=== PATIENT | male | born 2005 | race Caucasian/White ===

== ENCOUNTER 2023-02-06 02:42 | Emergency (ER) | payer OTHER, SELFPAY ==
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
[2023-02-06 02:45] VITALS: BP 145/91; PULSE 76; RESP 18; TEMP 37.2; O2SAT 100; BMI 39.0
--- NOTE | 2023-02-06 04:36 | ED_ITS ---
HPI - Extremity Injury (Lower) General Chief Complaint: Extremity Injury, Lower Stated Complaint: fall/ Left ankle pain Time Seen by Provider: 02/06/23 04:34 Source: patient Mode of arrival: ambulatory Limitations: no limitations History of Present Illness HPI Narrative: Patient complaining of left ankle pain after he twisted his left foot earlier today able to ambulate with slight pain slight swelling of the lateral malleolus no other deformity no other injuries Related Data Previous Rx's Medication Instructions Recorded ibuprofen 600 mg tablet 600 mg PO Q6H PRN fever or pain 02/06/23 #30 tabs Allergies Allergy/AdvReac Type Severity Reaction Status Date / Time No Known Allergies Allergy Unverified 08/18/20 17:18 Review of Systems Review of Systems: Yes all other systems are reviewed and are negative [facility] Social History Social History Advance Directives: No Advance Directives Information Provided: Yes Physical Exam Vital Signs: Vital Signs: Last Vital Signs Temp 98.9 F 02/06/23 02:45 Pulse 76 02/06/23 02:45 Resp 18 02/06/23 02:45 BP 145/91 H 02/06/23 02:45 Pulse Ox 100 02/06/23 02:45 O2 Del Method 02/06/23 02:45 BMI result Body Mass Index 39.0 Appearance: Alert. Oriented X3. No acute distress. ENT: Pharynx normal. Oral Mucosa moist Neck: Normal inspection. Neck supple. CVS: Normal heart rate and rhythm. Pulses normal. Respiratory: No respiratory distress. Equal air entry bilateral, Abdomen: Soft and nontender. Skin: Skin warm and dry. Normal skin color. Normal skin turgor. Extremities: No lower extremity edema. No calf tenderness left lateral malleolus tenderness with soft tissue swelling no deformity neurovascular intact Neuro: Oriented X 3. No motor deficit. Medications Administered Discontinued Medications Generic Name Dose Route Start Last Admin Trade Name Freq PRN Reason Stop Dose Admin Ibuprofen 600 mg 02/06/23 04:38 02/06/23 04:52 Ibuprofen 600 Mg Tablet PO 02/06/23 04:39 600 mg ONCE ONE Administration Medical Decision Making Medical Decision Making MDM Narrative: Ankle x-ray negative for fracture chuckie wrap was applied will give ibuprofen discharge patient home Discharge Plan Discharge Clinical Impression: Ankle sprain and strain Patient Disposition: Home, Self-Care Instructions: Ankle Sprain (ED) Additional Instructions: Wear Chuckie wrap Ibuprofen for pain Prescriptions: New ibuprofen 600 mg tablet 600 mg PO Q6H PRN (Reason: fever or pain) Qty: 30 0RF Stand Alone Forms: Work/School Release
[2023-02-06] MEDS: Ibuprofen 600 MG TABLET PO (04:52)
== END 2023-02-06 05:02 | disposition home or self-care (01) ==
PROVIDERS: Emergency Provider Internal Medicine
DX: S93.402A Sprain of unspecified ligament of left ankle, initial encounter (principal); S96.912A Strain of unspecified muscle and tendon at ankle and foot level, left foot, initial encounter; X50.1XXA Overexertion from prolonged static or awkward postures, initial encounter; Y93.9 Activity, unspecified; Y92.9 Unspecified place or not applicable; Y99.9 Unspecified external cause status
CPT/HCPCS: 73610; 99283

== ENCOUNTER 2024-09-11 20:48 | Emergency (ER) | payer MEDICAID, SELFPAY ==
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
[2024-09-11 20:59] VITALS: BP 168/96; PULSE 94; O2SAT 97
[2024-09-11 21:07] VITALS: BP 137/88; PULSE 84; RESP 16; TEMP 37.2; O2SAT 96; BMI 36.3
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
[2024-09-11] MEDS: oxyCODONE HCl Immed Release 5 MG TABLET 10 MG PO (22:45)
[2024-09-11] MEDS: Bacitracin Oint 0.9 GM PACKET 3 APPL TOPICAL (23:49)
[2024-09-11] MEDS: cephALEXin 500 MG CAPSULE PO (23:49)
[2024-09-11 23:50] VITALS: BP 132/84; PULSE 80; RESP 18; TEMP 37.2; O2SAT 99
[2024-09-11 23:56] VITALS: BP 132/84; PULSE 80; RESP 18; TEMP 37.2; O2SAT 99
== END 2024-09-11 23:56 | disposition home or self-care (01) ==
PROVIDERS: Emergency Provider Internal Medicine
DX: S43.101A Unspecified dislocation of right acromioclavicular joint, initial encounter (principal); S60.512A Abrasion of left hand, initial encounter; V23.49XA Other motorcycle driver injured in collision with car, pick-up truck or van in traffic accident, initial encounter; Y93.89 Activity, other specified; Y92.414 Local residential or business street as the place of occurrence of the external cause; Y99.9 Unspecified external cause status
CPT/HCPCS: 73000; 73130; 99283